=== PATIENT | male | born 1960 | race Two or more races ===

== ENCOUNTER 2022-06-17 07:54 | Outpatient (REF) | payer BC, SELFPAY ==
[2022-06-17 08:37] LABS: MANUAL DIFF FLAG NO
[2022-06-17 09:11] LABS: Basophils Percent Auto 0.2 % (0-2); Eosinophils Absolute Auto 0.2 X10*3/uL (0.0-0.4); Eosinophils Percent Auto 4.4 % (0-4); Hematocrit 44.7 % (42.0-52.0); Hemoglobin 15.2 g/dl (14.0-18.0); Imm Gran Abs Auto 0.02 X10*3/uL (0.00-0.03); Imm Gran Pct Auto 0.4 % (0.0-0.4); Lymphocytes Absolute Auto 1.6 X10*3/uL (1.2-4.9); Lymphocytes Percent Auto 34.9 % (20-40); Mean Corpuscular Hemoglobin 32.7 pg (27.0-33.0); Mean Corpuscular Volume 96.1 fL (80.0-98.0); Mean Platelet Volume 9.1 fL (9.4-12.4); Monocytes Absolute Auto 0.8 X10*3/uL (0.1-1.2); Monocytes Percent Auto 16.7 % (2-11); Neutrophils Percent Auto 43.4 % (45-73); Platelet Count 267 X10*3/uL (160-400); Red Blood Count 4.65 X10*6/uL (4.60-5.80); Red Cell Distribution Width 12.7 % (11.0-16.0); White Blood Count 4.6 X10*3/uL (4.8-10.8)
[2022-06-17 09:52] LABS: Alanine Aminotransferase 34 U/L (0-40); Albumin Level 4.3 g/dL (3.5-5.0); Alkaline Phosphatase 75 U/L (39-117); Anion Gap 14 (12-20); Aspartate Amino Transferase 28 U/L (5-37); Bilirubin Total 1.1 mg/dL (0.0-1.0); Blood Urea Nitrogen 13 mg/dL (9-16); Calcium 9.5 mg/dL (8.4-10.2); Carbon Dioxide 29 mmol/L (22-29); Chloride 102 mmol/L (96-108); Cholesterol 285 mg/dL; Estimated Glomerular Filt Rate > 60; Glucose Random 120 mg/dL (60-115); HDL Cholesterol 49 mg/dL; LDL Cholesterol Calculated 214 mg/dl; Sodium 140 mmol/L (135-145); Total Protein 7.6 g/dL (6.5-8.0); Triglycerides 110 mg/dL
[2022-06-17 10:13] LABS: Prostate Specific Antigen 0.77 ng/mL (<0.05-4.0)
== END 2022-06-17 07:55 | disposition home or self-care (01) ==
LOC: HO.LAB 07:54
PROVIDERS: PCP Internal Medicine; Visit Provider Internal Medicine
DX: Z00.00 Encounter for general adult medical examination without abnormal findings (principal); I10 Essential (primary) hypertension; M51.16 Intervertebral disc disorders with radiculopathy, lumbar region; Z13.31 Encounter for screening for depression; Z12.5 Encounter for screening for malignant neoplasm of prostate
CPT/HCPCS: 36415; 80053; 80061; 84153; 85025

== ENCOUNTER 2023-08-17 11:01 | Day surgery (SDC) | payer BC, SELFPAY ==
[2023-08-17 11:19] VITALS: BMI 31.0
[2023-08-17 11:34] VITALS: BP 145/88; PULSE 77; RESP 16; TEMP 36.8; O2SAT 99
--- NOTE | 2023-08-17 12:02 | HO.ANESPROP2 ---
[facility] Past Medical History Medical History Hyperlipidemia Functional capacity: independent ambulation Family History Family history of problems with anesthesia: No Surgical History Surgical History H/O wrist surgery H/O umbilical hernia repair History of right inguinal hernia repair History of colonoscopy History of Problems with Anesthesia: No Social History Social History Patient Tobacco Use Status: Never used Tobacco Use of substances other than those prescribed or required for medical reasons: No Are you DNR?: No Advance Directives: No Advance Directives Information Provided: Yes Meds Allergies Allergy/AdvReac Type Severity Reaction Status Date / Time latex Allergy Rash Verified 08/17/23 11:56 Active Medications: Current Medications Sodium Biphosphate/Sodium Phosphate (Sodium Phosphate,[place]-Dibasic 133 Ml Enema) 133 ml [place] ONCE PRN PRN Reason: Poor Colonoscopy Prep Results Home Medications Medication Instructions Recorded Confirmed Last Taken Type multivitamin 1 tab PO DAILY 08/14/23 08/17/23 Unknown History rosuvastatin 10 mg tablet 10 mg PO DAILY 08/14/23 08/17/23 Unknown History Exam Height,Weight and Vital Signs: Height 5 ft 8 in Weight 92.351 kg Last Vital Signs Temp 98.3 F 08/17/23 11:34 Pulse 77 08/17/23 11:34 Resp 16 08/17/23 11:34 BP 145/88 H 08/17/23 11:34 Pulse Ox 99 08/17/23 11:34 O2 Del Method Room Air 08/17/23 11:34 Airway Mallampati Class: III TM Dist: >3cm Neck ROM: Full Heart: RRR Lungs: CTA Assessment and Plan Final Anesthetic Review Family History of Problems with Anesthesia: No History of Problems with Anesthesia: No Final Preanesthetic Review: Meds/Allgs Chart Reviewed, Consent Obtained/Reviewed and Anes Risks/Benef Reviewed Patient Risk: Low Procedure Risk: Low Anesthetic Plan Anesthetic Plan: GA Disposition: Standard PACU
[2023-08-17 13:24] VITALS: BP 104/49; PULSE 69; RESP 16; TEMP 36.3; O2SAT 96
[2023-08-17 13:29] VITALS: BP 98/55; PULSE 67; RESP 16; O2SAT 96
--- NOTE | 2023-08-17 13:29 | P.BOP_ITS ---
Brief Operative Note Date of Service: 08/17/23 Pre-op diagnosis: Screening Post-op diagnosis: other (Polyp) Procedure: Colonoscopy to the cecum and TI with cold snare polypectomy Surgeon: Kiran Jin MD Anesthesia: MAC Was an Hospital Pharmacy Technician used for this Procedure?: No Estimated blood loss (mL): 2.0 Pathology: other (A. Rectal polyp) Condition: stable Disposition: PACU
[2023-08-17 13:34] VITALS: BP 118/73; PULSE 75; RESP 16; O2SAT 96
[2023-08-17 13:39] VITALS: BP 123/83; PULSE 73; RESP 16; O2SAT 96
--- NOTE | 2023-08-17 13:47 | HO.POSTANES ---
Post Anesthesia Evaluation Post Anesthesia Evaluation Date of Service: 08/17/23 Vital Signs: Vital Signs Temp Pulse Resp BP Pulse Ox O2 Del Method 08/17/23 13:39 73 16 123/83 96 Room Air 08/17/23 13:34 75 16 118/73 96 Room Air 08/17/23 13:29 67 16 98/55 L 96 Room Air 08/17/23 13:24 97.4 F 69 16 104/49 L 96 Room Air 08/17/23 11:34 98.3 F 77 16 145/88 H 99 Room Air Anesthesia: TIVA Mental Status: Awake Pain Control: Satisfactory Nausea/Vomiting: None Hydration: Adequate Anesthesia-Related Issues: No Anes. Related Issues
[2023-08-17 13:54] VITALS: BP 132/86; PULSE 70; RESP 16; TEMP 36.3; O2SAT 97
--- NOTE | 2023-08-17 21:18 | OP_ITS ---
DATE OF SERVICE: 08/17/2023 SURGEON: Kiran Jin MD INDICATIONS: The patient presents for evaluation of colorectal cancer screening. Full consent has been obtained from him for this, including risks of bleeding and perforation. PREOPERATIVE DIAGNOSIS: Colorectal cancer screening. POSTOPERATIVE DIAGNOSIS: Colorectal cancer screening, rectal polyp, mild diverticulosis, small internal hemorrhoids. PROCEDURE PERFORMED: Colonoscopy to cecum and terminal ileum with cold snare polypectomy. ESTIMATED BLOOD LOSS: COMPLICATIONS: ANESTHESIA: Monitored anesthesia care. ASSISTANTS: SPECIMENS: DESCRIPTION OF PROCEDURE: The patient was placed in the left lateral decubitus position. The digital rectal exam revealed no abnormalities. The Olympus video pediatric colonoscope was entered into the rectum and advanced easily to the cecum. Once in the cecum, I did identify normal-appearing cecal pouch with appendiceal orifice and a normal-appearing ileocecal valve. The terminal ileum was cannulated and appeared normal. The scope was withdrawn back in the colon. The entire cecum and ileocecal valve appeared normal. The scope was slowly withdrawn assessing all mucosal surfaces carefully. Preparation was excellent. I did not visualize any sign of colitis nor angiodysplasia. There was a mild amount of sigmoid diverticulosis. In the rectum, there was an approximately 5 or 6 mm polyp, which was removed by cold snare polypectomy and recovered by suction. The polypectomy site appeared clean, without any sign of residual polyp nor significant bleeding. The scope was retroflexed visualizing internal hemorrhoids, but no other pathology. The scope was straightened and withdrawn from the patient. He tolerated the procedure well and was returned to recovery area in stable condition. IMPRESSION: 1. Rectal polyp. 2. Diverticulosis. 3. Internal hemorrhoids. PLAN: The results of the pathology will be checked. If this is a tubular adenoma, I would recommend a followup colonoscopy in 5 years. If it is only hyperplastic, I would recommend a followup colonoscopy in 10 years. He will otherwise see me on a p.r.n. basis. MD BREE Ch/YARIEL / [id number]
== END 2023-08-17 14:10 | disposition home or self-care (01) ==
PROVIDERS: PCP Physician Assistant Medical; Visit Provider Internal Medicine
PROC: 0DJD8ZZ Inspection of Lower Intestinal Tract, Via Natural or Artificial Opening Endoscopic (ICD-10-PCS; CPT 45378; principal; 2023-08-17 12:00)
DX: Z12.11 Encounter for screening for malignant neoplasm of colon (principal); D12.8 Benign neoplasm of rectum; K57.30 Diverticulosis of large intestine without perforation or abscess without bleeding; K64.8 Other hemorrhoids; E78.5 Hyperlipidemia, unspecified; Z79.899 Other long term (current) drug therapy
CPT/HCPCS: 45385; 88305; J2704